=== PATIENT | male | born 1950 | race Caucasian/White ===

== ENCOUNTER 2018-07-11 19:11 | Emergency (ER) | payer OTHER ==
[2018-07-11] MEDS ORDERED: GLUCAGON 1 MG/VIAL ONE (19:39)
--- NOTE | 2018-07-11 20:34 | ER ---
Nurse's Notes [facility] Name: Alireza Tesfaye Age: 67 yrs Sex: Male : 1950 Arrival Date: 07/11/2018 Time: 19:15 Bed 7 Private MD: Isaac Rivera C Diagnosis: Foreign body in esophagus Presentation: 07/11 19:18 Presenting complaint: Patient states: Patient reports he was eating roast just prior to ss arrival when he felt as if he had a piece stuck in his esophagus. reports that patient was unable to keep saliva and/or water down. On arrival to exam room, patient states that he feels as if it has passed. Transition of care: patient was not received from another setting of care. Onset of symptoms was July 11, 2018. Risk Assessment: Do you want to hurt yourself or someone else? Patient reports no desire to harm self or others. Initial Sepsis Screen: Does the patient meet any 2 criteria? No. Patient's initial sepsis screen is negative. Does the patient have a suspected source of infection? No. Patient's initial sepsis screen is negative. Care prior to arrival: None. 19:18 Method Of Arrival: Ambulatory ss 19:18 Acuity: DIANE 3 ss Historical: - Allergies: 19:57 No Known Allergies; jb4 - Home Meds: 19:57 amlodipine 10 mg tab [Active]; doxazosin 1 mg oral tab [Active]; jb4 hydrocodone-acetaminophen 10-325 mg oral tab [Active]; meloxicam 15 mg oral tab [Active]; methocarbamol 500 mg Oral tab [Active]; rivaroxaban oral 10 mg oral [Active]; simvastatin 80 mg Oral tab [Active]; sotalol 80 mg Oral tab [Active]; tamsulosin 0.4 mg oral cp24 [Active]; - PMHx: 19:57 Atrial Fib; Hypertension; jb4 - PSHx: 19:57 Knee surgery; jb4 - Immunization history:: Adult Immunizations up to date. - Social history:: Smoking status: Patient/guardian denies using tobacco, never smoked. Screenin:57 Abuse screen: Denies threats or abuse. Nutritional screening: No deficits noted. jb4 Tuberculosis screening: No symptoms or risk factors identified. Fall Risk IV access (20 points). Ambulatory Aid- Crutches/Cane/Walker (15 pts). Total León Fall Scale indicates Low Risk Score (25-44 pts). Fall prevention measures have been instituted. Side Rails Up X 2 Placed close to Nursing Station Frequent Obs/Assesments occuring Family Present and informed to notify staff if they need to leave bedside. Assessment: 19:45 General: Appears in no apparent distress. uncomfortable, Behavior is calm, cooperative, jb4 appropriate for age. Pain: Complains of pain in left knee Pain currently is 3 out of 10 on a pain scale. Neuro: Level of Consciousness is awake, alert, obeys commands, Oriented to person, place, time, situation. Cardiovascular: Heart tones S1 S2 present Patient's skin is warm and dry. Respiratory: Airway is patent Respiratory effort is even, unlabored, Respiratory pattern is regular, symmetrical, Breath sounds are clear bilaterally. GI: No signs and/or symptoms were reported involving the gastrointestinal system. : No signs and/or symptoms were reported regarding the genitourinary system. EENT: No signs and/or symptoms were reported regarding the EENT system. Derm: Skin is intact, Skin is pink, warm \T\ dry. Musculoskeletal: No signs and/or symptoms reported regarding the musculoskeletal system. 20:30 Reassessment: Patient appears in no apparent distress at this time. Patient and/or aa1 family updated on plan of care and expected duration. Pain level reassessed. Patient is alert, oriented x 3, equal unlabored respirations, skin warm/dry/pink. Pt reports he feels much better and felt what was caught in his throat go done and no longer feels like something is stuck. 21:00 Reassessment: Patient appears in no apparent distress at this time. Patient is alert, aa1 oriented x 3, equal unlabored respirations, skin warm/dry/pink. Discussed d/c \T\ f/u instructions with pt \T\ spouse; denies questions or concerns at this time Patient denies pain at this time. Patient states feeling better. Vital Signs: 19:20 BP 149 / 84; Pulse 87; Resp 16; Pulse Ox 96% on R/A; Height 5 ft. 10 in. (177.80 cm); ss Pain 0/10; 19:28 Temp 97.6; aa1 20:30 BP 122 / 69; Pulse 86; Resp 16; Pulse Ox 95% on R/A; aa1 21:00 BP 117 / 72; Pulse 83; Resp 16; Pulse Ox 97% on R/A; Pain 0/10; aa1 ED Course: 19:15 Patient arrived in ED. es 19:15 Isaac Rivera MD is Private Physician. es 19:17 Jair Cervantes [facility] is [facility]. jr8 19:17 Kevin Gonzales MD is Attending Physician. jr8 19:18 Arm band placed on right wrist. 19:19 Triage completed. 19:45 Ej Alvarado, RN is Primary Nurse. jb4 19:57 Patient has correct armband on for positive identification. Fall risk band placed. Bed jb4 in low position. Call light in reach. Side rails up X 1. Pulse ox on. NIBP on. 21:00 No provider procedures requiring assistance completed. IV discontinued, intact, aa1 bleeding controlled, No redness/swelling at site. Pressure dressing applied. Administered Medications: 19:45 Drug: Glucagon 1 mg Route: IVP; Site: right antecubital; jb4 20:54 Follow up: Response: No adverse reaction jb4 21:02 Follow up: Response: Marked relief of symptoms aa1 Outcome: 20:33 Discharge ordered by . jr8 21:00 Discharged to home ambulatory, with significant other. aa1 21:00 Condition: good 21:00 Discharge instructions given to patient, significant other, Instructed on discharge instructions, follow up and referral plans. Demonstrated understanding of instructions, follow-up care. 21:02 Patient left the ED. aa1 Signatures: Whit Hardy RN RN aa1 Hollie Westbrook Shelby, RN RN Jair Cervantes PA PA jr8 Ej Alvarado, RN RN jb4 Corrections: (The following items were deleted from the chart) 21:04 21:03 Reassessment: Patient appears in no apparent distress at this time. Patient is aa1 alert, oriented x 3, equal unlabored respirations, skin warm/dry/pink. Discussed d/c \T\ f/u instructions with pt \T\ spouse; denies questions or concerns at this time Patient denies pain at this time. Patient states feeling better. aa1
--- NOTE | 2018-07-11 20:34 | EDPHYS ---
Physician Documentation [facility] Name: Alireza Tesfaye Age: 67 yrs Sex: Male : 1950 Arrival Date: 07/11/2018 Time: 19:15 Bed 7 Private MD: Isaac Rivera C ED Physician Kevin Gonzales HPI: 07/11 20:25 This 67 yrs old Male presents to ER via Ambulatory with complaints of FB jr8 esophagus. 20:25 The patient or guardian reports the patient has a suspected foreign body, that has been jr8 ingested. The reported likely foreign body is piece of meat. Onset: The symptoms/episode began/occurred acutely, today. Current symptoms: nausea, pain, in the area of the foreign body. The patient has not experienced similar symptoms in the past. The patient has not recently seen a physician. Stated that he was eating roast beef and felt it get stuck in esophagus. Had vomited some up but still unable to keep water down . Historical: - Allergies: 19:57 No Known Allergies; jb4 - Home Meds: 19:57 amlodipine 10 mg tab [Active]; doxazosin 1 mg oral tab [Active]; jb4 hydrocodone-acetaminophen 10-325 mg oral tab [Active]; meloxicam 15 mg oral tab [Active]; methocarbamol 500 mg Oral tab [Active]; rivaroxaban oral 10 mg oral [Active]; simvastatin 80 mg Oral tab [Active]; sotalol 80 mg Oral tab [Active]; tamsulosin 0.4 mg oral cp24 [Active]; - PMHx: 19:57 Atrial Fib; Hypertension; jb4 - PSHx: 19:57 Knee surgery; jb4 - Immunization history:: Adult Immunizations up to date. - Social history:: Smoking status: Patient/guardian denies using tobacco, never smoked. ROS: 20:25 Eyes: Negative for injury, pain, redness, and discharge, ENT: Negative for injury, jr8 pain, and discharge, Neck: Negative for injury, pain, and swelling, Cardiovascular: Negative for chest pain, palpitations, and edema, Respiratory: Negative for shortness of breath, cough, wheezing, and pleuritic chest pain, Abdomen/GI: Negative for abdominal pain, diarrhea, and constipation. Positive for nausea and vomiting Back: Negative for injury and pain, MS/Extremity: Negative for injury and deformity, Skin: Negative for injury, rash, and discoloration, Neuro: Negative for headache, weakness, numbness, tingling, and seizure. Exam: 20:25 Eyes: Pupils equal round and reactive to light, extra-ocular motions intact. Lids and jr8 lashes normal. Conjunctiva and sclera are non-icteric and not injected. Cornea within normal limits. Periorbital areas with no swelling, redness, or edema. ENT: Nares patent. No nasal discharge, no septal abnormalities noted. Tympanic membranes are normal and external auditory canals are clear. Oropharynx with no redness, swelling, or masses, exudates, or evidence of obstruction, uvula midline. Mucous membranes moist. Neck: Trachea midline, no thyromegaly or masses palpated, and no cervical lymphadenopathy. Supple, full range of motion without nuchal rigidity, or vertebral point tenderness. No Meningismus. Cardiovascular: Regular rate and rhythm with a normal S1 and S2. No gallops, murmurs, or rubs. Normal PMI, no JVD. No pulse deficits. Respiratory: Lungs have equal breath sounds bilaterally, clear to auscultation and percussion. No rales, rhonchi or wheezes noted. No increased work of breathing, no retractions or nasal flaring. Abdomen/GI: Soft, non-tender, with normal bowel sounds. No distension or tympany. No guarding or rebound. No evidence of tenderness throughout. Back: No spinal tenderness. No costovertebral tenderness. Full range of motion. Skin: Warm, dry with normal turgor. Normal color with no rashes, no lesions, and no evidence of cellulitis. MS/ Extremity: Pulses equal, no cyanosis. Neurovascular intact. Full, normal range of motion. Neuro: Awake and alert, GCS 15, oriented to person, place, time, and situation. Cranial nerves II-XII grossly intact. Motor strength 5/5 in all extremities. Sensory grossly intact. Cerebellar exam normal. Normal gait. Vital Signs: 19:20 BP 149 / 84; Pulse 87; Resp 16; Pulse Ox 96% on R/A; Height 5 ft. 10 in. (177.80 cm); ss Pain 0/10; 19:28 Temp 97.6; aa1 20:30 BP 122 / 69; Pulse 86; Resp 16; Pulse Ox 95% on R/A; aa1 21:00 BP 117 / 72; Pulse 83; Resp 16; Pulse Ox 97% on R/A; Pain 0/10; aa1 MDM: 19:18 Patient medically screened. jr8 20:31 Data reviewed: vital signs, nurses notes, and as a result, I will discharge patient. jr8 Data interpreted: Pulse oximetry: on room air is 96 %. Interpretation: normal. Counseling: I had a detailed discussion with the patient and/or guardian regarding: the historical points, exam findings, and any diagnostic results supporting the discharge/admit diagnosis, the need for outpatient follow up, a bonsai tender, to return to the emergency department if symptoms worsen or persist or if there are any questions or concerns that arise at home. Response to treatment: the patient's symptoms have resolved after treatment. ED course: Glucagon relaxed esophagus enough to pass food bolus. Able to tolerate fluids without regurgitation. No longer has FB sensation or pain . 07/11 19:34 Order name: IV; Complete Time: 19:45 [facility] Administered Medications: 19:45 Drug: Glucagon 1 mg Route: IVP; Site: right antecubital; [facility] 20:54 Follow up: Response: No adverse reaction [facility] 21:02 Follow up: Response: Marked relief of symptoms aa1 Disposition: 07/12 12:33 Co-signature as Attending Physician, Kevin Gonzales MD I agree with the assessment and ar plan of care. Disposition: 07/11/18 20:33 Discharged to Home. Impression: Foreign body in esophagus. - Condition is Stable. - Discharge Instructions: Foreign Body. - Medication Reconciliation Form, Thank You Letter, Antibiotic Education, Prescription Opioid Use form. - Follow up: Private Physician; When: 1 - 2 days; Reason: Recheck today's complaints, Continuance of care, Re-evaluation by your physician. - Problem is new. - Symptoms are resolved. Signatures: Whit Hardy RN RN aa1 Jair Cervantes PA PA jr8 Ej Alvarado RN RN jb4 Kevin Gonzales MD MD ar Corrections: (The following items were deleted from the chart) 07/11 21:02 20:33 07/11/2018 20:33 Discharged to Home. Impression: Foreign body in esophagus. aa1 Condition is Stable. Forms are Medication Reconciliation Form, Thank You Letter, Antibiotic Education, Prescription Opioid Use. Follow up: Private Physician; When: 1 - 2 days; Reason: Recheck today's complaints, Continuance of care, Re-evaluation by your physician. Problem is new. Symptoms are resolved. jr8
== END 2018-07-11 21:02 | disposition home or self-care (01) ==
LOC: ER 19:11
DX: T18.128A Food in esophagus causing other injury, initial encounter (principal); I10 Essential (primary) hypertension; I48.91 Unspecified atrial fibrillation
CPT/HCPCS: 96374; 99283; J1610

== ENCOUNTER 2025-08-19 07:02 | Observation (INO) | payer OTHER ==
[2025-08-19] MEDS ORDERED: ASPIRIN 81 MG CHEWABLE TABLET ONE (07:39)
[2025-08-19 07:54] LABS: Absolute Lymphocytes (CBC) 1.3 K/uL (0.7-4.9); Hematocrit 45.6 % (39.6-49.0); Hemoglobin 15.8 g/dL (13.6-17.9); MCH 31.8 pg (27.0-35.0); MCHC 34.7 g/dL (32.0-36.0); MCV 91.7 fL (80-100); MPV 7.7 fL (7.6-11.3); Nucleated RBC Absolute Count 0.0 (0-0); Nucleated Red Blood Cells % 0.1 % (0-0); RBC Red Blood Cell Count 4.98 M/uL (4.33-5.43); White Blood Count 6.20 thou/uL (4.3-10.9)
[2025-08-19 08:16] LABS: Anion Gap 13.7 mEq/L (5.0-15.0); BUN Blood Urea Nitrogen 13.0 mg/dL (7-18); Glucose Level 148.0 mg/dL (74-106); Magnesium 2.1 mg/dL (1.6-2.4); NT PRO-BNP 147.0 pg/mL (<125); Potassium 3.7 mEq/L (3.5-5.1); Troponin High Sensitivity 6.9 pg/mL (<58.9)
--- NOTE | 2025-08-19 08:54 | RAD REPORT ---
EXAMINATION: ONE VIEW CHEST XR CLINICAL INDICATION: Male, 74 years old.,PALPITATIONS TECHNIQUE: Frontal chest projection is submitted. Examination is limited by patient positioning and t echnique. COMPARISON: 08/23/2021. FINDINGS: The lungs are well inflated and clear. No pneumothorax or sizable effusion. The heart is normal in s ize. Mediastinal contours are unremarkable. IMPRESSION: No acute intrathoracic abnormalities.
--- NOTE | 2025-08-19 09:48 | ER ---
Nurse's Notes [facility] Name: Alireza Tesfaye Age: 74 yrs Sex: Male : 1950 Arrival Date: 08/19/2025 Time: 07:02 Bed 8 Private MD: Diagnosis: Unspecified atrial fibrillation;Essential (primary) hypertension Presentation: 08/19 07:06 Chief complaint: Patient states: hx of afib with cardiac ablation 3 years ago, started iw feeling heart racing and shaky, dizzy since 0500 today. Coronavirus screen: At this time, the client does not indicate any symptoms associated with coronavirus-19. Risk Assessment: Do you want to hurt yourself or someone else? Patient reports no desire to harm self or others. 07:06 Method Of Arrival: Ambulatory iw 07:06 Acuity: DIANE 2 iw 07:06 Ebola Screen: No symptoms or risks identified at this time. Initial Sepsis Screen: Does iw the patient meet any 2 criteria? No. Patient's initial sepsis screen is negative. Does the patient have a suspected source of infection? No. Patient's initial sepsis screen is negative. Onset of symptoms was August 19, 2025. Historical: - Allergies: 07:07 No Known Allergies; iw - Home Meds: 07:15 amlodipine 10 mg tab daily [Active]; simvastatin 80 mg Oral tab every evening [Active]; iw doxazosin 2 mg oral tablet daily [Active]; tamsulosin 0.4 mg Oral cp24 daily [Active]; metoprolol succinate 25 mg oral Tablet, Extended Release 24 hr daily [Active]; aspirin 81 mg oral capsule daily [Active]; - PMHx: 07:07 Atrial Fib; pinched nerve in neck; iw - Immunization history:: Adult Immunizations up to date. - Infectious Disease History:: Denies. - Social history:: Smoking status: Patient denies any tobacco usage or history of. Screenin:00 [facility] ED Fall Risk Assessment (Adult) History of falling in the last 3 months, nh2 including since admission No falls in past 3 months (0 pts) Confusion or Disorientation No (0 pts) Intoxicated or Sedated No (0 pts) Impaired Gait No (0 pts) Mobility Assist Device Used No (0 pt) Altered Elimination No (0 pt) Score/Fall Risk Level 0 - 2 = Low Risk Oriented to surroundings, Maintained a safe environment, Educated pt \T\ family on fall prevention, incl call for assistance when getting out of bed, Assessed \T\ reinforced patient's understanding of fall precautions. Abuse screen: Denies threats or abuse. Denies injuries from another. Nutritional screening: No deficits noted. Tuberculosis screening: No symptoms or risk factors identified. Assessment: 07:10 General: Appears uncomfortable, Behavior is cooperative, appropriate for age. Pain: nh2 Denies pain. Neuro: Level of Consciousness is awake, alert, obeys commands, Oriented to person, place, time, situation, Appropriate for age Reports dizziness. Cardiovascular: Denies chest pain, Heart tones S1 S2 present Patient's skin is warm and dry. Rhythm is atrial fibrillation with rapid ventricular response. Respiratory: Reports shortness of breath on exertion Airway is patent Trachea midline Respiratory effort is even, unlabored, Respiratory pattern is regular, symmetrical, Denies cough. GI: Abdomen is round obese, Bowel sounds present X 4 quads. Abd is soft and non tender X 4 quads. Patient currently denies nausea, vomiting. : Denies burning with urination. EENT: No signs and/or symptoms were reported regarding the EENT system. Derm: Skin is pink, warm \T\ dry. Musculoskeletal: Circulation, motion, and sensation intact. Range of motion: intact in all extremities. 07:30 General: Appears in no apparent distress. Behavior is calm, cooperative. Pain: Denies nh2 pain. Cardiovascular: Heart tones S1 S2 present Patient's skin is warm and dry. Rhythm is sinus rhythm. 08:30 Reassessment: Patient and/or family updated on plan of care and expected duration. Pain nh2 level reassessed. Patient is alert, oriented x 3, equal unlabored respirations, skin warm/dry/pink. Patient denies pain at this time. 09:26 Reassessment: Patient appears in no apparent distress at this time. Patient and/or cm10 family updated on plan of care and expected duration. Pain level reassessed. Patient is alert, oriented x 3, equal unlabored respirations, skin warm/dry/pink. 10:25 Reassessment: Patient and/or family updated on plan of care and expected duration. Pain nh2 level reassessed. Patient is alert, oriented x 3, equal unlabored respirations, skin warm/dry/pink. Patient denies pain at this time. 11:25 Reassessment: Patient and/or family updated on plan of care and expected duration. Pain nh2 level reassessed. Patient is alert, oriented x 3, equal unlabored respirations, skin warm/dry/pink. Patient denies pain at this time. Vital Signs: 07:06 BP 106 / 85; Pulse 165; Resp 19; Pulse Ox 94% on R/A; Weight 86.18 kg; Height 5 ft. 8 iw in. ; 07:41 Pulse 104; cm10 08:15 BP 124 / 74; Pulse 76; Resp 16; Pulse Ox 96% on R/A; nh2 09:39 BP 136 / 75; Pulse 77; Resp 18; Pulse Ox 100% on R/A; nh2 10:35 BP 132 / 73; Pulse 64; Resp 18; Pulse Ox 100% on R/A; nh2 11:30 BP 120 / 70; Pulse 60; Resp 16; Pulse Ox 96% on R/A; nh2 07:06 Body Mass Index 28.89 (86.18 kg, 172.72 cm) iw Vitals: 07:15 Cardiac Rhythm Assessment Atrial fibrillation. cm10 09:26 Cardiac Rhythm Assessment Regular Sinus rhythm. cm10 ED Course: 07:03 Patient arrived in ED. cj3 07:05 Oz Wilson DO is Attending Physician. ms3 07:07 Triage completed. iw 07:14 Arm band placed on. iw 07:24 Patient has correct armband on for positive identification. Bed in low position. Call cm10 light in reach. Side rails up X 1. Client placed on continuous cardiac and pulse oximetry monitoring. NIBP monitoring applied. cardiac monitor technician on. 07:24 Initial lab(s) drawn, by wv, sent to lab. EKG done, by ED staff, reviewed by Oz Wilson DO. Inserted saline lock: 18 gauge in right forearm, using aseptic technique. Blood collected. Flushed with 10 mL NS. 07:34 Vikki Sanchez, JOSE ALEJANDRO is Primary Nurse. cm10 07:50 XRAY Chest (1 view) In Process Unspecified. EDMS 08:00 Provided Education on: using call light for assistance. nh2 09:47 Javier Mullins MD is Hospitalizing Provider. ms3 15:03 No provider procedures requiring assistance completed. Patient admitted, IV remains in nh2 place. Administered Medications: 07:41 Drug: Aspirin PO Chewable Tablet 324 mg PO once; 81 mg tablets x 4 Route: PO; cm10 08:30 Follow up: Response: No adverse reaction cm10 10:00 Drug: Sotalol PO 80 mg PO once Route: PO; nh2 10:36 Follow up: Response: No adverse reaction; Blood pressure is lowered nh2 Medication: 11:59 VIS not applicable for this client. nh2 Outcome: 09:48 Decision to Hospitalize by Provider. ms3 16:42 Patient left the ED. iw Signatures: Dispatcher [employer] EDMS Mabel Stauffer, RN RN Oz Wilson DO DO ms3 Vikki Sanchez RN JOSE ALEJANDRO cm10 Nikita Staton, Sunny RN RN nh2 Sarika Reyes cj3 Corrections: (The following items were deleted from the chart) 07:08 07:07 PMHx: Hypertension; iw iw 07:08 07:07 PSHx: cardiac ablation (Hypertension); iw iw 07:14 07:06 BP 106 / 85; Resp 19bpm; Pulse Ox 94% RA; 86.18 kg; Height 5 ft. 8 in.; BMI: iw 28.8; iw
--- NOTE | 2025-08-19 09:48 | EDPHYS ---
Physician Documentation [facility] Name: Alireza Tesfaye Age: 74 yrs Sex: Male : 1950 Arrival Date: 08/19/2025 Time: 07:02 Bed 8 Private MD: ED Physician Oz Wilson HPI: 08/19 12:07 This 74 yrs old Male presents to ER via Ambulatory with complaints of A-FIB. ms3 12:07 74-year-old male past medical history of atrial fibrillation, pinched nerve in the neck ms3 presents to the emergency department for palpitations that awoke him from sleep. Patient states he is lightheaded, short of breath. Patient denies nausea or vomiting. Patient states he took a baby aspirin this morning.. Historical: - Allergies: 07:07 No Known Allergies; iw - Home Meds: 07:15 amlodipine 10 mg tab daily [Active]; simvastatin 80 mg Oral tab every evening [Active]; iw doxazosin 2 mg oral tablet daily [Active]; tamsulosin 0.4 mg Oral cp24 daily [Active]; metoprolol succinate 25 mg oral Tablet, Extended Release 24 hr daily [Active]; aspirin 81 mg oral capsule daily [Active]; - PMHx: 07:07 Atrial Fib; pinched nerve in neck; iw - Immunization history:: Adult Immunizations up to date. - Infectious Disease History:: Denies. - Social history:: Smoking status: Patient denies any tobacco usage or history of. ROS: 12:07 Constitutional: Negative for fever, and chills. ms3 12:07 Abdomen/GI: Negative for abdominal pain, nausea, vomiting, diarrhea, and constipation, MS/Extremity: Negative for injury and deformity, Skin: Negative for injury, rash, and discoloration, 12:07 Cardiovascular: Positive for palpitations, 12:07 Respiratory: Positive for shortness of breath, 12:07 Neuro: Positive for Lightheaded, Exam: 12:07 Constitutional: This is a well developed, well nourished patient who is awake, alert, ms3 and in no acute distress. 12:07 Respiratory: Lungs have equal breath sounds bilaterally, clear to auscultation and percussion. No rales, rhonchi or wheezes noted. No increased work of breathing, no retractions or nasal flaring. Abdomen/GI: Soft, non-tender, with normal bowel sounds. No distension or tympany. No guarding or rebound. No evidence of tenderness throughout. Skin: Warm, dry with normal turgor. Normal color with no rashes, no lesions, and no evidence of cellulitis. 12:07 Cardiovascular: Rate: tachycardic, Rhythm: irregularly irregular, Pulses: no pulse deficits are appreciated, Heart sounds: normal, normal S1and S2, 12:07 ECG was reviewed by the Attending Physician. ms3 14:34 ECG was reviewed by the Attending Physician. ms3 Vital Signs: 07:06 BP 106 / 85; Pulse 165; Resp 19; Pulse Ox 94% on R/A; Weight 86.18 kg; Height 5 ft. 8 iw in. ; 07:41 Pulse 104; cm10 08:15 BP 124 / 74; Pulse 76; Resp 16; Pulse Ox 96% on R/A; nh2 09:39 BP 136 / 75; Pulse 77; Resp 18; Pulse Ox 100% on R/A; nh2 10:35 BP 132 / 73; Pulse 64; Resp 18; Pulse Ox 100% on R/A; nh2 11:30 BP 120 / 70; Pulse 60; Resp 16; Pulse Ox 96% on R/A; nh2 07:06 Body Mass Index 28.89 (86.18 kg, 172.72 cm) iw MDM: 07:20 Medical Screening Exam initiated ms3 12:07 Differential diagnosis: arrythmia, Electrolyte abnormality versus AK. Data reviewed: ms3 vital signs, nurses notes, lab test result(s), EKG, radiologic studies, and as a result, I will admit patient. Consideration of Admission/Observation Patient was admitted/placed on observation. Management of patient was discussed with the following: Hospitalist: Dr Mullins. Bar And Filler Assembler: Dr Rubio- Would like sotalol 80 mg BID started. Patient can be discharged after 3rd dose and normal ekg. I considered the following discharge prescriptions or medication management in the emergency department Medications were administered in the Emergency Department. See MAR. Independent interpretation of the following test(s) in the Emergency Department EKG: See my EKG interpretation above X-Ray: My interpretation is CXR image reviewed by me does not reveal pna. Counseling: I had a detailed discussion with the patient and/or guardian regarding the historical points, exam findings, and any diagnostic results supporting the discharge/admit diagnosis, lab results, radiology results, the need for further work-up and treatment in the hospital. ED course: Discussed with patient and his necessity for observation for sotalol. They understand and agree with plan. All questions were answered. Patient converted to NSR without medications. 08/19 07:25 Order name: Basic Metabolic Panel; Complete Time: 09:37 ms3 08/19 07:25 Order name: CBC with Diff; Complete Time: 09:37 ms3 08/19 07:25 Order name: Magnesium; Complete Time: 09:37 ms3 08/19 07:25 Order name: NT PRO-BNP; Complete Time: 09:37 ms3 08/19 07:25 Order name: Troponin HS; Complete Time: 09:37 ms3 08/19 11:06 Order name: CBC with Automated Diff EDMS 08/19 11:06 Order name: CBC with Automated Diff EDMS 08/19 11:06 Order name: Comprehensive Metabolic Panel EDMS 08/19 11:06 Order name: Comprehensive Metabolic Panel EDMS 08/19 11:06 Order name: Troponin High Sensitivity EDMS 08/19 11:06 Order name: Troponin High Sensitivity EDMS 08/19 11:06 Order name: Troponin High Sensitivity EDMS 08/19 07:25 Order name: XRAY Chest (1 view); Complete Time: 09:37 ms3 08/19 11:06 Order name: Echo with Doppler EDMS 08/19 07:25 Order name: EKG; Complete Time: 07:25 ms3 08/19 11:06 Order name: CONS Physician Consult EDMS 08/19 07:25 Order name: Cardiac monitoring; Complete Time: 07:34 ms3 08/19 07:25 Order name: EKG - Nurse/Tech; Complete Time: 07:34 ms3 08/19 07:25 Order name: IV Saline Lock; Complete Time: 07:34 ms3 08/19 07:25 Order name: Labs collected and sent; Complete Time: 07:34 ms3 08/19 07:25 Order name: O2 Per Protocol; Complete Time: 07:34 ms3 08/19 07:25 Order name: O2 Sat Monitoring; Complete Time: 07:34 ms3 EC:07 Rate is 146 beats/min. Rhythm is irregularly irregular. Left axis deviation noted. QRS ms3 interval is normal. Clinical impression: Atrial Fibrillation and with RVR. Interpreted by me. Reviewed by me. 14:34 Rate is 76 beats/min. Rhythm is regular. QRS Magness is Normal. OH interval is normal. QRS ms3 interval is normal. Clinical impression: NSR w/ Non-specific ST/T Changes. Interpreted by me. Reviewed by me. Administered Medications: 07:41 Drug: Aspirin PO Chewable Tablet 324 mg PO once; 81 mg tablets x 4 Route: PO; cm10 08:30 Follow up: Response: No adverse reaction cm10 10:00 Drug: Sotalol PO 80 mg PO once Route: PO; nh2 10:36 Follow up: Response: No adverse reaction; Blood pressure is lowered nh2 Disposition Summary: 08/19/25 09:48 Hospitalization Ordered Notes: Hospitalization Status: Observation ms3 Provider: Javier Mullins ms3 Condition: Stable ms3 Problem: new ms3 Symptoms: are unchanged ms3 Bed/Room Type: Standard ms3 Location: Telemetry/MedSurg (observation)(08/19/25 15:20) Room Assignment: 204(08/19/25 15:20) Diagnosis - Unspecified atrial fibrillation ms3 - Essential (primary) hypertension ms3 Forms: - Medication Reconciliation Form ms3 - SBAR form ms3 - Leadership Thank You Letter ms3 Signatures: Dispatcher [employer] EDMS Tatum Campos Irene RN JOSE ALEJANDRO Hortencia West RN RN ss Oz Wilson DO DO ms3 Leigh Ann Kim RN RN kb3 Vikki Sanchez RN RN 10 Sunny Shelton Jr RN RN nh2 Corrections: (The following items were deleted from the chart) 07:08 07:07 PMHx: Hypertension; iw iw 07:08 07:07 PSHx: cardiac ablation (Hypertension); iw 12:12 12:07 ED course: Discussed with patient and his necessity for observation for ms3 sotalol. They understand and agree with plan. All questions were answered.. ms3 13:10 09:48 Telemetry/MedSurg (observation) ms3 ss 13:10 09:48 ms3 ss 13:22 13:10 [facility] ER HOLD ss ss 13:22 13:10 ERHOLD- ss ss 13:22 13:22 Telemetry/MedSurg (observation) ss ss 13:22 13:22 204 ss ss 14:54 13:22 ss kb3 15:20 13:22 [facility] ER HOLD ss bd 15: 14:54 ERHOLD- kb3 bd
[2025-08-19] MEDS ORDERED: SOTALOL HCL 80 MG TAB ONE (09:55)
[2025-08-19] MEDS ORDERED: ACETAMINOPHEN 500 MG TAB PO PRN (11:00)
[2025-08-19] MEDS ORDERED: ONDANSETRON 4 MG/2 ML VIAL IV PRN (11:00)
[2025-08-19] MEDS ORDERED: MORPHINE 2 MG/ML SYR IV PRN (11:00)
--- NOTE | 2025-08-19 11:00 | P.HP ---
Certification for Inpatient Patient admitted to: Observation With expected LOS: <2 Midnights Patient will require the following post-hospital care: None Practitioner: I am a practitioner with admitting privileges, knowledge of patient current condition, hospital course, and medical plan of care. Services: Services provided to patient in accordance with Admission requirements found in Title 42 Section 412.3 of the Code of Federal Regulations Patient History Date of Service: 08/19/25 Reason for admission: Atrial fibrillation with rapid ventricular sponsor History of Present Illness: Patient is a 74-year-old gentleman who came into the hospital with atrial fibrillation with rapid ventricular response. Patient went back into a normal sinus rhythm. He has been seen by cardiology and patient was started on sotalol and remains in normal sinus rhythm. Will continue with anticoagulation for now and discussed with cardiology regarding anticoagulation going forward. 2D echo is pending. Anticipate discharge in the morning. Will monitor for QT prolongation. Patient has a history of atrial fibrillation diagnosed 3 years ago. He was sent to [facility] by Dr. Fofana and he was seen by optimization specialist patient was seen by optimization specialist and had an EP study with ablation. He has been in normal sinus rhythm since that time. He has not needed any medications since that time either. - Past Medical/Surgical History -: Atrial fibrillation -: EP study with ablation - Family History Father Family History: Reviewed- Non-Contributory - Social History Smoking Status: Never smoker Alcohol use: No CD- Drugs: No Review of Systems 10-point ROS is otherwise unremarkable Physical Examination - Vital Signs Temperature: 98 F Blood Pressure: 140/80 Pulse: 110 Respirations: 18 Pulse Ox (%): 95 - Physical Exam General: Alert, In no apparent distress HEENT: Atraumatic, PERRLA, Mucous membr. moist/pink, EOMI, Sclerae nonicteric Neck: Supple, 2+ carotid pulse no bruit, No LAD, Without JVD or thyroid abnormality Respiratory: Clear to auscultation bilaterally, Normal air movement Cardiovascular: Regular rate/rhythm, Normal S1 S2 Gastrointestinal: Normal bowel sounds, Soft and benign, Non-distended, No tenderness Musculoskeletal: No tenderness Integumentary: No rashes Neurological: Normal gait, Normal speech, Normal strength at 5/5 x4 extr, Normal tone, Sensation intact, Cranial nerves 3-12 intact, Normal affect Lymphatics: No axilla or inguinal lymphadenopathy - Studies Laboratory Data (last 24 hrs) 10/08/25 10/08/25 07:35 07:35 WBC 6.20 Hgb 15.8 Hct 45.6 Plt Count 151 L Sodium 145 Potassium 3.7 BUN 13 Creatinine 1.07 Glucose 148 H Magnesium 2.1 Assessment & Plan - Problems (Diagnosis) (1) Atrial fibrillation with rapid ventricular response Current Visit: Yes Status: Acute - Plan Plan: 1. Continue with sotalol 80 mg twice daily and Eliquis 5 mg p.o. twice daily. Cardiology consulted. Echocardiogram pending. Anticipate discharge in a.m. Outpatient follow-up with business architect. Discharge Plan: Home Plan to discharge in: 24 Hours - Advance Directives Does patient have a Living Will: No Does patient have a Durable POA for Healthcare: No - Code Status/Comfort Care Code Status Assessed: Yes Code Status: Full Code Critical Care: No Time Spent Managing PTS Care (In Minutes): 45
[2025-08-19 14:45] VITALS: BMI 28.8
[2025-08-19] MEDS: APIXABAN 5 MG TABLET PO SCH (20:57)
[2025-08-19] MEDS: SOTALOL HCL 80 MG TAB PO SCH (20:57)
--- NOTE | 2025-08-20 00:20 | HP ---
Date of Admission: 08/19/2025 Chief Complaint: Palpitation. History Of Present Illness: This is a 74-year-old male patient with prior history of atrial fibrillation, for which he had ablation done about 3 years ago and since that time, he has not had any palpitation or recurrence of atrial fibrillation problem. This morning, he woke up from sleep around 5 o'clock with heart racing feeling and had some shortness of breath associated with that and his symptoms lasted for almost 3 hours and subsequently he came to emergency room and after he came to ER, he converted into sinus rhythm and has remained in sinus rhythm. Dr. Rubio was contacted from the emergency room and he advised the patient to be admitted to the hospital with instruction to start him on sotalol and he did receive first dose of sotalol in the emergency room this morning. The patient sees furnace process supervisor, Dr. Medrano, once a year and he actually has appointment to see him during later part of this month. He denies any recent febrile illness. No vomiting, diarrhea. Denies any excessive caffeine use and denies use of any new or different [id number] medications. When I saw him this evening, he was in his room with his at bedside and feeling fine. Review of Systems: Cardiovascular: As mentioned above. Respiratory: As mentioned above. All other systems reviewed and negative. Allergies: NO KNOWN ALLERGIES. Medications: At home, he takes amlodipine/benazepril 10/20 mg 1 capsule by mouth daily, aspirin 81 mg daily, doxazosin 2 mg daily at bedtime, simvastatin 80 mg daily, tamsulosin 0.4 mg daily, metoprolol succinate 25 mg daily. Past Medical History: COVID-19 infection on December 23, 2022, impaired fasting glucose, hypertension, mixed hyperlipidemia, paroxysmal atrial fibrillation, nonalcoholic fatty liver disease, liver cyst, diverticulosis, benign prostatic hypertrophy. Past Surgical History: Tonsillectomy, ablation for atrial fibrillation done on June 30, 2022, by Dr. Medrano and has a loop recorder in place since August 2022, also had lumbar spine surgery, knee surgery on the left knee, and left hand fifth finger surgery. Family History: Father , had myocardial infarction. Mother , had osteoporosis, stroke, osteoarthritis. Social History: Negative for smoking. Use of alcohol, occasional beer. Physical Examination: Vital Signs: Upon admission, temperature 98, pulse 110, respiratory rate 18, blood pressure 140/80, oxygen saturation 95%. Height 5 feet 8 inches, weight 190 pounds. General: Awake, alert, oriented, not in distress. HEENT: Head atraumatic, normocephalic. Conjunctivae nonerythematous. Sclerae white. Mouth, no thrush or edema noted. Ears/Nose, no mass, lesion, discharge noted. Neck: Supple. No JVD, lymph nodes, bruit, thyromegaly noted. Lungs: Bilateral good equal air entry. Clear to auscultation. No rhonchi. No rales. Heart: Normal heart sounds, no murmur or gallop. Abdomen: Soft, bowel sounds normal. No guarding, rigidity, tenderness, mass, hepatosplenomegaly, distention, or bruit noted. Extremities: No leg edema. No calf tenderness. Skin: No rash, ulcer, cellulitis. Lymphatics: No lymph node enlargement in neck, supraclavicular, infraclavicular region. Neuro: No focal neurological deficit. Chest: Unremarkable. External Genitalia: Deferred. Rectal: Deferred. Laboratory Data: WBC 6.2, hemoglobin 15.8, platelets 151. Sodium 145, potassium 3.7, chloride 110, bicarb 25, BUN 13, creatinine 1.07, glucose 148, magnesium 2.1. Troponin 6.9. Chest x-ray, no acute cardiopulmonary changes. Impression: 1. Paroxysmal atrial fibrillation. 2. Hypertension. 3. Mixed hyperlipidemia. 4. Impaired fasting glucose. 5. Diverticulosis. 6. Benign prostatic hypertrophy. 7. Non-alcoholic fatty liver disease. Plan: We will admit the patient to hospital for further evaluation and management of this problem. The patient is appropriate for observation and we will go ahead and keep him on telemetry. Consult senior manager mmcoe. The patient received first dose of sotalol 80 mg this morning in the emergency room and also received aspirin. We will follow up with senior manager mmcoe regarding his recommendation on anticoagulation therapy. Plan is to discharge him to go home tomorrow after he gets third dose of sotalol and the EKG after the third dose. For hypertension, we will continue his antihypertensive medication. Monitor blood pressure. If necessary, adjust medication. For hyperlipidemia, continue his statin therapy, no need for further intervention. For benign prostatic hypertrophy, continue tamsulosin. No need for further intervention. Total time spent 60 minutes including communication with hospitalist, who actually had admitted the patient by mistake and details were discussed with him, review of emergency room visit record, review of last office visit record from 07/07/2025, and performing today's evaluation and management. I will see him tomorrow for followup. MIGUELINA/MELINDA Voice ID: [id number] MTDRon
[2025-08-20 00:45] VITALS: O2SAT 94
[2025-08-20 05:04] LABS: Hemoglobin 14.8 g/dL (13.6-17.9); MPV 7.4 fL (7.6-11.3)
[2025-08-20 05:10] LABS: Absolute Lymphocytes (CBC) 1.3 K/uL (0.7-4.9); Hematocrit 42.8 % (39.6-49.0); MCH 31.8 pg (27.0-35.0); MCHC 34.6 g/dL (32.0-36.0); MCV 91.9 fL (80-100); Nucleated RBC Absolute Count 0.0 (0-0); Nucleated Red Blood Cells % 0.3 % (0-0); RBC Red Blood Cell Count 4.66 M/uL (4.33-5.43); White Blood Count 6.50 thou/uL (4.3-10.9)
[2025-08-20 05:19] LABS: ALT/SGPT 54.0 U/L (16-61); AST/SGOT 29.0 U/L (15-37); Albumin 3.4 g/dL (3.4-5.0); Albumin/Globulin Ratio 1.1 (1.1-1.8); Alkaline Phosphatase 68.0 U/L (45-117); Anion Gap 7.7 mEq/L (5.0-15.0); BUN Blood Urea Nitrogen 19.0 mg/dL (7-18); Globulin 3.1 g/dL (2.3-3.5); Glucose Level 110.0 mg/dL (74-106); Potassium 3.7 mEq/L (3.5-5.1)
[2025-08-20 05:25] LABS: Magnesium 2.2 mg/dL (1.6-2.4); Thyroid Stimulating Hormone 2.01 uIU/mL (0.358-3.740)
[2025-08-20] MEDS: AMLODIPINE 10 MG TAB PO SCH (08:56)
--- NOTE | 2025-08-20 08:59 | P.CNS ---
Date of Consult: 08/20/25 Chief Complaint: Atrial fibrillation with rapid ventricular sponsor History of Present Illness: Patient with PMH of atrial fibrillation s/p ablation 3 years ago, presented with RVR, was loaded with sotalol and being monitored in the hospital, feel better today, denies chest pain, no palpitations, no syncope, no breathing problems. Allergies No Known Allergies Allergy (Unverified 08/19/25 15:53) Home medications list reviewed: Yes Home Medications: Amlodipine [Norvasc*] 10 mg PO DAILY 08/19/25 Aspirin 81 mg PO DAILY 08/19/25 Doxazosin [Cardura*] 2 mg PO DAILY 08/19/25 Metoprolol Tartrate 25 mg PO DAILY 08/19/25 Simvastatin 80 mg PO DAILY 08/19/25 Tamsulosin [Flomax*] 0.4 mg PO DAILY 08/19/25 - Past Medical/Surgical History -: Atrial fibrillation -: Hypertension -: EP study with ablation -: Left Knee Replacement -: Back Surgery -: Tonsillectomy - Family History Father Family History: Reviewed- Non-Contributory - Social History Smoking Status: Never smoker Alcohol use: No CD- Drugs: No Review of Systems 10-point ROS is otherwise unremarkable Physical Examination Temp Pulse Resp BP Pulse Ox 97.8 F 57 16 135/72 93 08/20/25 08:00 08/20/25 08:00 08/20/25 08:00 08/20/25 08:00 08/20/25 08:00 General: Alert, In no apparent distress HEENT: Atraumatic, PERRLA, Mucous membr. moist/pink, EOMI, Sclerae nonicteric Neck: Supple, 2+ carotid pulse no bruit, No LAD, Without JVD or thyroid abnormality Respiratory: Clear to auscultation bilaterally, Normal air movement Cardiovascular: Regular rate/rhythm, Normal S1 S2 Gastrointestinal: Normal bowel sounds, No tenderness Musculoskeletal: No tenderness Integumentary: No rashes Neurological: Normal gait, Normal speech, Normal tone, Normal affect Lymphatics: No axilla or inguinal lymphadenopathy - Problems (1) HTN (hypertension) Current Visit: Yes Status: Acute Plan: continue Norvasc 10 mg daily (2) Atrial fibrillation with rapid ventricular response Current Visit: Yes Status: Acute Plan: continue Sotalol 80 mg po BID (EKG after 3rd dose), if QTc is normal then patient can go home continue Eliquis 5 mg po BID Outpatient follow up with cardiology.
[2025-08-20] MEDS ORDERED: MORPHINE 4 MG/ML SYR IV PRN (10:53)
[2025-08-20 12:23] VITALS: BP 109/56; TEMP 98.1
--- NOTE | 2025-08-21 03:45 | DS ---
Date of Discharge: 08/20/2025 Disposition: Discharged to go home. Physical Examination: HEENT: Unremarkable. Lungs: Clear to auscultation. Heart: Sounds normal. Abdomen: Soft. Bowel sounds normal. No guarding, rigidity, tenderness, distention. Extremities: No leg edema. Laboratory Data: Today, WBC 6.5, hemoglobin 14.8, platelets 159. Sodium 143, potassium 3.7, chloride 111, bicarb 19, BUN 19, creatinine 0.91, glucose 110, magnesium 2.2. TSH 2.010. Liver function tests unremarkable. Troponin 6.6. Discharge Diagnoses: 1. Paroxysmal atrial fibrillation. 2. Hypertension. 3. Mixed hyperlipidemia. 4. Impaired fasting glucose. 5. Diverticulosis. 6. Benign prostatic hypertrophy. 7. Non-alcoholic fatty liver disease. Discharge Medications And Instructions: Continue all prior home medications except following changes: 1. STOP Metoprolol 2. START Sotalol 80 mg, take 1 tablet by mouth two times a day. 3. STOP Aspirin 4. START Eliquis 5 mg, take 1 tablet by mouth two times a day. Prescriptions for Sotalol and Eliquis will be sent to your pharmacy from Dr. Rivera's office Follow up with Dr. Medrano as per your scheduled appointment Follow up with Dr. Rivera next week Follow up with Dr. Rubio/Dr. Fields in two weeks. Hospital Course: Mr. Tesfaye is a very pleasant 74-year-old male patient, who was admitted to the hospital yesterday with atrial fibrillation with rapid ventricular rate. Please see dictated H and P for more information. After the patient was evaluated in emergency room, he was admitted to the hospital and he was started on sotalol. He did receive first dose of sotalol in the emergency room. 80 mg 2 times a day of sotalol was given to him and this morning was his third dose. After that, we did EKG. EKG was reviewed and subsequently the patient was discharged to go home in stable condition. The patient converted to sinus rhythm yesterday after he came to emergency room and has remained in sinus rhythm throughout this hospital stay on telemetry. Cardiology consultation was requested and I did communicate details with program coordinator, Dr. Rubio, yesterday and he has recommended for the patient to restart anticoagulation therapy and Eliquis 5 mg 2 times a day was started. The patient was taking aspirin prior to this hospital admission and I have instructed him to stop his metoprolol and aspirin and start sotalol and Eliquis as prescribed. Today, he was discharged to go home in stable condition. MIGUELINA/MELINDA Voice ID: [id number] Report ID: [id number] MTDD
== END 2025-08-20 12:39 | disposition home or self-care (01) ==
LOC: ER 07:02 → ERHOLD 11:00 → 2ND 15:53
PROVIDERS: ADMIT Hospitalist; ATTEND Internal Medicine
DX: R00.2 Palpitations (principal); I48.11 Longstanding persistent atrial fibrillation; R73.01 Impaired fasting glucose; I10 Essential (primary) hypertension; E78.2 Mixed hyperlipidemia; K76.0 Fatty (change of) liver, not elsewhere classified; N40.0 Benign prostatic hyperplasia without lower urinary tract symptoms; K76.89 Other specified diseases of liver; K57.90 Diverticulosis of intestine, part unspecified, without perforation or abscess without bleeding; Z86.16 Personal history of COVID-19
CPT/HCPCS: 36415; 71045; 80048; 80053; 82947; 83735; 83880; 84439; 84443; 84484; 85025; 93005; 99284; G0378